=== PATIENT | female | born 1990 | race Two or more races ===

== ENCOUNTER 2023-03-23 11:22 | Emergency (ER) | payer BC ==
[~2023-03-23] VITALS: Ht 149.9 cm; Wt 146.4 kg
[2023-03-23 12:05] VITALS: BP 91/52
[2023-03-23] MEDS ORDERED: METH4PAK PO (14:00)
[2023-03-23] MEDS ORDERED: DICL-163 PO (14:00)
== END 2023-03-23 14:15 | disposition home or self-care (01) ==
LOC: ER 11:22
DX: S46.212A Strain of muscle, fascia and tendon of other parts of biceps, left arm, initial encounter (principal); X58.XXXA Exposure to other specified factors, initial encounter; Y93.89 Activity, other specified; Y92.89 Other specified places as the place of occurrence of the external cause; Y99.8 Other external cause status

== ENCOUNTER 2025-05-18 15:40 | Emergency (ER) | payer BC ==
[~2025-05-18] VITALS: Ht 152.4 cm; Wt 68.8 kg
[~2025-05-18 15:40] MED LIST: DICL50TA5 PO; METH4PAK PO
--- NOTE | 2025-05-18 15:53 | ED.PDOC ---
BATTERY PLATE REMOVER HPI Comments 34-year-old female with PMHx Hypothyroidism, HLD presents with a chief complaint of pelvic pain, possible , and abnormal vaginal bleeding. Patient states that her last menstrual cycle was in February 2025. Patient states that she feels , but has not taken a test to confirm if she is or not. Patient believes that she might be miscarrying because she is experiencing vaginal bleeding that started off as spotting x 2 days ago and has now gotten heavier. Patient does not have a doctors appointment until May 29, 2025. G3, P2. Time Seen by MD: 15:46 Reviewed Notes: Medications, Allergies Allergies: Coded Allergies: NO KNOWN ALLERGIES (Unverified , 03/23/23) Home Meds Active Scripts Diclofenac Sodium (Diclofenac Sodium Dr) 50 Mg Tab, 50 MG PO TID PRN, #30 TAB Prov:YARON LAWSON 03/23/23 Methylprednisolone (Medrol Dosepak) 4 Mg Kal, 4 MG PO UD, #21 TAB UAD Prov:YARON LAWSON 03/23/23 Information Source: Patient Mode of Arrival: Ambulatory Timing: Days Prehospital treatment: None Severity: Moderate Bleeding Quality: Bright Red Onset Of Mass/Bleeding: Spontaneous Sexual Activity: Last Consensual [place]: Unknown Control: None History of: Current Blood Type: Unknown Symptoms of Possible : Missed Period, Feels Past Medical History PAST MEDICAL HISTORY: High Lipids, Thyroid Surgical History: Thyroidectomy RADIO/TV TECHNICIAN History: No Pertinent RADIO/TV TECHNICIAN History Family History Family History: Reviewed,noncontributory to illness Social History Smoker: Non-Smoker Alcohol: Denies ETOH Use Drugs: Denies Drug Use Lives In: Home Constitutional: denies: chills, diaphoresis, fatigue, fever, malaise, sweats, weakness, others EENTM: denies: blurred vision, double vision, ear bleeding, ear discharge, ear drainage, ear pain, ear ringing, eye pain, eye redness, hearing loss, mouth pain, mouth swelling, nasal discharge, nose bleeding, nose congestion, nose pain, photophobia, tearing, throat pain, throat swelling, voice changes, others Respiratory: denies: cough, hemoptysis, orthopnea, SOB at rest, shortness of breath, SOB with excertion, stridor, wheezing, others Cardiovascular: denies: chest pain, dizzy spells, diaphoresis, Dyspnea on exertion, edema, irregular heart beat, left arm pain, lightheadedness, palpitations, PND, syncope, others Gastrointestinal: denies: abdomen distended, abdominal pain, blood streaked bowels, constipated, diarrhea, dysphagia, difficulty swallowing, hematemesis, melena, nausea, poor appetite, poor fluid intake, rectal bleeding, rectal pain, vomiting, others Genitourinary: reports: abnormal vagina bleeding, pain, ; denies: burning, dyspareunia, dysuria, flank pain, frequency, hematuria, incontinence, vagina discharge, urgency, others Neurological: denies: dizziness, fainting, headache, left sided numbness, left sided weakness, numbness, paresthesia, pre-existing deficit, right sided numbness, right sided weakness, seizure, speech problems, tingling, tremors, weakness, others Musculoskeletal: denies: back pain, gout, joint pain, joint swelling, muscle pain, muscle stiffness, neck pain, others Integumetry: denies: bruises, change in color, change in hair/nails, dryness, laceration, lesions, lumps, rash, wounds, others Allergic/Immunocompromised: denies: Difficulty Healing, Frequent Infections, Hives, Itching, others Hematologic/Lymphatic: denies: anemia, blood clots, easy bleeding, easy bruising, swollen glands, others Endocrine: denies: excessive hunger, excessive sweating, excessive thirst, excessive urination, flushing, intolerance to cold, intolerance to heat, unex plained weight gain, unexplained weight loss, others Psychiatric: denies: anxiety, bipolar disorder, depression, hopeless, panic disorder, schizophrenia, sleepless, suicidal, others All Other Systems: Reviewed and Negative Physical Exam General Appearance: No Apparent Distress, Normal HEENT: Normal ENT Inspection, Pharynx Normal, TMs Normal Neck: Full Range of Motion, Non-Tender, Normal, Normal Inspection Respiratory: Chest Non-Tender, Lungs Clear, No Accessory Muscle Use, No Respiratory Distress, Normal Breath Sounds Cardiovascular: No Edema, No JVD, No Murmur, No Gallop, Normal Peripheral Puls es, Regular Rate/Rhythm Breast Exam: Deferred Gastrointestinal: No Organomegaly, Non Tender, No Pulsatile Mass, Normal Bowel Sounds, Soft Genitalia: Deferred Pelvic: Deferred Rectal: Deferred Extremities: No calf tenderness, Normal capillary refill, Normal inspection, Normal range of motion, Non-tender, No pedal edema Musculoskeletal : Apperance: Normal Neurologic: Alert, electrician underground II-XII nml as Tested, No Motor Deficits, Normal Affect, Normal Mood, No Sensory Deficits Cerebellar Function: Normal Reflexes: Normal Skin: Dry, Normal Color, Warm Lymphatic: No Adenopathy Was a procedure done? Was a procedure done?: No X-Ray, Labs, Meds, VS Vital Signs Date Time Temp Pulse Resp B/P (MAP) Pulse Ox O2 Delivery O2 Flow Rate FiO2 05/18/25 18:21 98.2 68 16 113/52 (72) 100 98.2 05/18/25 15:54 99.3 72 18 142/88 (106) 100 99.3 Lab Test 05/18/25 16:19 05/18/25 15:45 Range/Units White Blood Count 8.2 4.4-10.8 10^3/uL Red Blood Count 4.33 4.0-5.20 10^6/uL Hemoglobin 12.5 12.2-16.2 g/dL Hematocrit 36.9 36.0-46.0 % Mean Corpuscular Volume 85.2 80.0-100.0 fL Mean Corpuscular Hemoglobin 28.8 28.0-32.0 pg Mean Corpuscular Hemoglobin Concent 33.8 32.0-36.0 g/dL Red Cell Distribution Width 14.6 H 11.8-14.3 % Platelet Count 305 140-450 10^3/uL Mean Platelet Volume 7.4 6.9-10.8 fL Neutrophils (%) (Auto) 71.1 37.0-80.0 % Lymphocytes (%) (Auto) 23.9 10.0-50.0 % Monocytes (%) (Auto) 4.6 0.0-12.0 % Eosinophils (%) (Auto) 0.0 0.0-7.0 % Basophils (%) (Auto) 0.4 0.0-2.0 % Neutrophils # (Auto) 5.8 1.6-8.6 10 ^3/uL Lymphocytes # (Auto) 2.0 0.4-5.4 10 ^3/uL Monocytes # (Auto) 0.4 0-1.3 10 ^3/uL Eosinophils # (Auto) 0 0-0.8 10 ^3/uL Basophils # (Auto) 0 0-0.2 10 ^3/uL Nucleated Red Blood Cells 0.0 % Beta HCG, Quantitative 2939.9 H 1.5-4.2 mIU/mL Urine Test Positive Negative Time of 1ST Reevaluation: 16:16 Reevaluation 1ST: Unchanged Patient Education/Counseling: Diagnosis, Treatment, Prognosis, Need For Follow Up Family Education/Counseling: No Family Present Comments pt has an 5 week 6 days IUP, but without FHT. she likely has incomplete misab. she is currently not hemorrhaging. her cbc and vss are normal. she is stable to follow up with her doctor Departure 1 Departure Time of Disposition: 20:08 Impression: Primary Impression: Threatened Disposition: HOME / SELF CARE / HOMELESS Condition: Stable Written Prescriptions follow up with your doctor (superintendent tests ) in 48 hours. feel free to return for any concerns, especially if bleeding recurs Discharged With: Self Critical Care Note Critical Care Time?: Yes (45 min-critical care time only) Critical care comment: Due to concerns for patients condition deteriorating, the care required my highest level of attention and readiness to intervene. I assessed the patient, reviewed the medical records, ordered the appropriate tests and treatments, then reassessed for results and responsiveness. I communicated with medical personnel and consultants and formulated a plan of care. Total critical care time excludes any procedures Stability Stability form required: No Heart Score Heart Score: Heart Score Response (Comments) Value History N/A 0 EKG N/A 0 Age N/A 0 Risk Factors N/A 0 Troponin N/A 0 Total 0 I personally scribed for ALLISON CORNEJO MD ([email or web address]) on 05/18/25 at 15:53. Electronically submitted by Kwesi Gong ([email or web address]). ALLISON CORNEJO MD May 18, 2025 15:53
[2025-05-18 16:48] LABS: Basophils # (auto) 0 10 ^3/uL (0-0.2); Basophils % (auto) 0.4 % (0.0-2.0); Eosinophils # (auto) 0 10 ^3/uL (0-0.8); Hematocrit 36.9 % (36.0-46.0); Hemoglobin 12.5 g/dL (12.2-16.2); Lymphocytes % (auto) 23.9 % (10.0-50.0); Mean Corpuscular Hemoglobin 28.8 pg (28.0-32.0); Mean Corpuscular Hgb Conc. 33.8 g/dL (32.0-36.0); Mean Corpuscular Volume 85.2 fL (80.0-100.0); Monocytes # (auto) 0.4 10 ^3/uL (0-1.3); Monocytes % (auto) 4.6 % (0.0-12.0); Neutrophils # (auto) 5.8 10 ^3/uL (1.6-8.6); Neutrophils % (auto) 71.1 % (37.0-80.0); Platelet Count (auto) 305 10^3/uL (140-450); Red Blood Cells 4.33 10^6/uL (4.0-5.20); Red Cell Distribution Width 14.6 % (11.8-14.3); White Blood Cell 8.2 10^3/uL (4.4-10.8)
--- NOTE | 2025-05-18 19:30 | DVH ---
OB EVALUATION, LESS THAN 14 WEEKS CLINICAL HISTORY: VAG BLEED COMPARISON: None TECHNIQUE: Grayscale, color-flow Doppler, and spectral Doppler ultrasound of the pelvis is performed by transabdominal and transvaginal technique. FINDINGS: Uterus measures 10.0 x 6.3 x 5.5 cm. Somewhat irregular gestational sac with pole seen within t he lower uterine segment. Mean sac diameter 1.5 cm. [place]-rump length 0.3 cm. Average ultrasound age 5 weeks 6 days. No definite yolk sac. No heart rate detected. The right ovary measures 2.2 x 1.3 x 1.6 cm. The left ovary measures 2.9 x 1.6 x 2.2 cm. Both ovarie s demonstrate dopplerable blood flow on spectral analysis. Small amount of free fluid noted in the cul-de-sac. IMPRESSION: Approximately 5 week, 6 day sized intrauterine gestational sac with pole seen within the lower uterine segment. No heart rate detected at this time. Early viable is a possibility, however, failure/incomplete miscarriage is more li roseanne given the above findings. Recommend short-term interval follow-up as well as correlation with se rial beta HCG testing.
[2025-05-18 20:10] VITALS: BP 156/72; TEMP 98.2
[2025-05-18 20:20] VITALS: PULSE 85; RESP 20; O2SAT 99
[2025-05-19] MEDS ORDERED: HYDR-4072 PO (21:22)
[2025-05-19] MEDS ORDERED: ZOFR4T PO (21:22)
[2025-05-19] MEDS ORDERED: IBUP-1456 PO (21:22)
[2025-05-19] MEDS ORDERED: FER325T PO (21:24)
== END 2025-05-18 20:18 | disposition home or self-care (01) ==
LOC: ER 15:40
DX: O20.0 Threatened abortion (principal); E78.5 Hyperlipidemia, unspecified; Z3A.01 Less than 8 weeks gestation of pregnancy; Z90.89 Acquired absence of other organs; Z79.899 Other long term (current) drug therapy
CPT/HCPCS: 36415; 76801; 76817; 81025; 84702; 85025; 86900; 86901

== ENCOUNTER → 2025-05-19 | Day surgery (SDC) | payer BC ==
[~2025-05-19] VITALS: Ht 172.7 cm; Wt 75.0 kg
[~2025-05-19] MED LIST changes: +DexAMETHasone SOD PHOS 10MG/1ML VIAL INJ ONE; +FER325T PO; +FLUMAZENIL 0.1 MG/ML INJ 10ML MDV IV PRN; +GLYCOPYRROLATE 0.2 MG/ML 1ML VIAL ONE; +HYDR-4072 PO; +HYDROmorphone HCL 2 MG/ML VL/or syr IV PRN; +IBUP-1456 PO; +KETAMINE 50mg/ML 1ml syringe ONE; +KETOROLAC TROMETH 30 MG/ML 1ML VIAL ONE; +LACTATED RINGER'S 1,000 ML IV SCH; +LIDOCAINE 2% (LOCAL ANESTH.) PF 5ml SDV ONE; +LIDOCAINE HCL 2% TOP JELLY 5ML TOP ONE; +NALOXONE HCL 0.4 MG/ML VIAL IV PRN; +ONDANSETRON HCL 4 MG/2 ML VIAL IV PRN; +ONDANSETRON HCL 4 MG/2 ML VIAL ONE; +PHENYLEPHRINE HCL 10 MG/ML VL IV ONE; +PROPOFOL 10 MG/ML 20 ML IV ONE; +ROCURONIUM 10MG/ML 10ML VIAL IV ONE; +SUGAMMADEX 200mg/2ml Vial (100MG/ML) IV ONE; +TRANEXAMIC ACID 1,000 MG in SODIUM CHL 0.9% 100 ML IV ONE; +TRANEXAMIC ACID 10 ML ONE; +ZOFR4T PO; +ePHEDrine SULFATE 50 MG/ML AMP IV PRN; +fentaNYL CITRATE 100 MCG/2 ML VL IV PRN; +fentaNYL CITRATE 100 MCG/2 ML VL ONE; +hydrALAZINE HCL 20 MG/ML VL IV PRN; +oxyCODONE HCL 5MG TAB PO PRN
--- NOTE | 2025-05-19 19:49 | ED.PDOC ---
MANAGER SAFE HPI Comments 34 y/o F is BIBA for c/c of heavy vaginal bleeding, with associated lower abdominal pain. Patient reports bleeding since yesterday's unprovoked onset at around 1400. Patient states she has soaked 6x 'Granny panties' and 6x pads today. Denies any lightheadedness, shortness of breath, urinary symptoms, weakness, or other additional symptoms. She reports she was told she was yesterday when evaluated at [facility] for similar symptoms. Obstetric and transvaginal ultrasound performed yesterday was reported to have shown IUP with no heart tones. History significant for hypothyroidism on levothyroxine and hyperlipidemia on simvastatin and partial thyroidectomy in 2019. Per EMS systolic pressure was in the 60's. Time Seen by MD: 19:30 Reviewed Notes: Nurses Notes, Blanket Washer Notes, Medications, Allergies Allergies: Coded Allergies: NO KNOWN ALLERGIES (Unverified , 03/23/23) Home Meds Active Scripts Ferrous Sulfate (FERROUS SULFATE) 325 Mg Tb, 1 TAB PO TIDBM PRN for 20 Days, #60 TAB 3 Refills Prov:NABEEL WHITTEN DO 05/19/25 Ondansetron Odt 4MG Tab (ZOFRAN PO) 4 Mg Tb, 4 MG PO Q4HPRN PRN for 6 Days, #30 TAB ODT TAB-DISSOLVE IN MOUTH, THEN SWALLOW Prov:NABEEL WHITTEN DO 05/19/25 Ibuprofen (Ibuprofen) 800 Mg Tab, 800 MG PO TID PRN for 3 Days, #12 TAB Prov:NABEEL WHITTEN DO 05/19/25 Hydrocodone-Acetaminophen (Hydrocodone/Acetaminophen 10-325 mg) 1 Tab Tab, 1 TAB PO Q6HPRN PRN for 3 Days, #12 TAB Prov:NABEEL WHITTEN DO 05/19/25 Diclofenac Sodium (Diclofenac Sodium Dr) 50 Mg Tab, 50 MG PO TID PRN, #30 TAB Prov:YARON LAWSONP 03/23/23 Methylprednisolone (Medrol Dosepak) 4 Mg Kal, 4 MG PO UD, #21 TAB UAD Prov:YARON LAWSON 03/23/23 Information Source: Patient, Emergency Med Personnel Mode of Arrival: EMS Timing: Hours Past Medical History PAST MEDICAL HISTORY: High Lipids, Thyroid Surgical History: Thyroidectomy (partial ) GRINDING WHEEL OPERATOR History: No Pertinent GRINDING WHEEL OPERATOR History 3 Para 2 Family History Family History: Reviewed,noncontributory to illness Social History Smoker: Non-Smoker Alcohol: Denies ETOH Use Drugs: Denies Drug Use Lives In: Home All Other Systems: Reviewed and Negative (Comprehensive review of systems are negative unless otherwise stated in HPI) Physical Exam General Appearance: Moderate Distress, Obese HEENT: Other (Pupils and face symmetric. Moist mucous membranes.) Neck: Full Range of Motion, Normal Inspection Respiratory: Lungs Clear, No Accessory Muscle Use, No Respiratory Distress, Normal Breath Sounds Cardiovascular: No Edema, No JVD, Regular Rate/Rhythm Breast Exam: Deferred Gastrointestinal: Suprapubic, Tenderness Genitalia: Normal Pelvic: Vaginal Bleeding (Moderate) Rectal: Deferred Extremities: Normal inspection, Normal range of motion, Non-tender, No pedal edema Neurologic: Alert (Oriented x4), Normal Affect, Normal Mood, Other (No gross focal deficit) Cerebellar Function: NOT DONE Reflexes: NOT DONE Skin: Dry, Pallor, Warm Lymphatic: NOT DONE Was a procedure done? Was a procedure done?: No Differential Diagnosis (GRINDING WHEEL OPERATOR) Vaginal Bleeding: - Complete, - Incomplete, - Inevitable, - Missed, - Threatened, Abruptio Placentae, Blood Loss Anemia, Dysmenorrhea, Hormonal, Menstrual Bleeding, Myomatous Uterus, Placenta Previa X-Ray, Labs, Meds, VS Vital Signs Date Time Temp Pulse Resp B/P (MAP) Pulse Ox O2 Delivery O2 Flow Rate FiO2 05/19/25 22:35 87 125/89 (101) 97 05/19/25 22:30 90 116/77 (90) 98 05/19/25 22:25 92 127/58 (81) 99 05/19/25 22:20 Mask 8.0 98 05/19/25 22:20 98.3 102 13 104/50 (68) 99 98.3 05/19/25 22:20 110 13 99 6.0 05/19/25 21:30 97.7 79 14 99/63 (75) 98 97.7 05/19/25 21:15 97.8 76 15 107/53 (71) 99 97.8 05/19/25 20:50 97.8 80 15 90/46 (61) 99 97.8 05/19/25 20:25 97.7 81 12 97/35 (55) 96 97.7 05/19/25 20:09 97.7 80 17 104/50 (68) 97 97.7 05/19/25 19:46 98.2 16 16 62/35 (44) 96 98.2 05/19/25 19:40 Room Air* 0 21 Lab Test 05/19/25 19:45 Range/Units White Blood Count 10.4 # 4.4-10.8 10^3/uL Red Blood Count 3.35 L 4.0-5.20 10^6/uL Hemoglobin 9.6 #L 12.2-16.2 g/dL Hematocrit 28.4 #L 36.0-46.0 % Mean Corpuscular Volume 85.0 80.0-100.0 fL Mean Corpuscular Hemoglobin 28.6 28.0-32.0 pg Mean Corpuscular Hemoglobin Concent 33.7 32.0-36.0 g/dL Red Cell Distribution Width 14.5 H 11.8-14.3 % Platelet Count 298 140-450 10^3/uL Mean Platelet Volume 7.1 6.9-10.8 fL Neutrophils (%) (Auto) 60.7 37.0-80.0 % Lymphocytes (%) (Auto) 34.0 10.0-50.0 % Monocytes (%) (Auto) 4.8 0.0-12.0 % Eosinophils (%) (Auto) 0.1 0.0-7.0 % Basophils (%) (Auto) 0.4 0.0-2.0 % Neutrophils # (Auto) 6.3 1.6-8.6 10 ^3/uL Lymphocytes # (Auto) 3.5 0.4-5.4 10 ^3/uL Monocytes # (Auto) 0.5 0-1.3 10 ^3/uL Eosinophils # (Auto) 0 0-0.8 10 ^3/uL Basophils # (Auto) 0 0-0.2 10 ^3/uL Nucleated Red Blood Cells 0.0 % Prothrombin Time 10.9 9.3-11.8 sec Prothrombin Time INR 1.03 0.9-1.15 Activated Partial Thromboplast Time 23.9 L 24.5-34.5 SEC Sodium Level 140 136-145 mmol/L Potassium Level 3.4 L 3.5-5.1 mmol/L Chloride Level 104 98-107 mmol/L Carbon Dioxide Level 24 20-31 mmol/L Anion Gap 12 5-15 Blood Urea Nitrogen 17 9-23 mg/dL Creatinine 0.83 0.550-1.02 mg/dL Glomerular Filtration Rate Calc 94 >90 mL/min BUN/Creatinine Ratio 20.5 H 10.0-20.0 Serum Glucose 127 H 74-106 mg/dL Calcium Level 9.2 8.7-10.4 mg/dL Beta HCG, Quantitative 1245.6 H 1.5-4.2 mIU/mL Current Medications Medications (Trade) Dose Ordered Sig/Gianni Route Start Time Stop Time Status Last Admin Sodium Chloride 2,000 ml @ 1,000 mls/hr Q2H ONCE IV 05/19/25 19:45 05/19/25 21:44 DC 05/19/25 20:05 Oxytocin 1,000 ml @ 150 mls/hr Q6H40M ONCE IV 05/19/25 20:45 05/20/25 03:24 DC 05/19/25 21:16 X-Ray, Labs, Meds, VS Comment 34-year-old female G3, P2 with current of unknown duration brought in by EMS from home complaining of pelvic pain and vaginal bleeding. Patient was found to be hypotensive in the 60s systolic. Vitals remarkable for BP 62/35 Exam remarkable for generalized suprapubic tenderness to palpation moderate dark red vaginal bleeding and pallor Rhythm strip independently interpreted by me: Sinus rhythm, rate 87, no ectopy. Ob ultrasound: Preliminarily reported by technologist showing retained products of conception in the lower uterine segment CBC remarkable for hemoglobin 9.6, hematocrit 28.4, basic metabolic panel remarkable for potassium 3.4, serum quantitative hCG 1254.6, coag panel unremarkable Patient treated with the following in the ED: Transfused 1 unit 0 neg, 2 L 0.9 normal saline IV bolus, Txa 1 g IV, 20 units of Pitocin in LR at 150 cc an hour On re-evaluation, blood pressure is 97/63 and other vitals were stable. Patient no longer appears pale. Case discussed with Dr. Whitten who will take the patient for D&C. Time of 1ST Reevaluation: 20:00 Reevaluation 1ST: Unchanged Time of 2ND Reevaluation: 20:56 Reevaluation 2ND: Improved Patient Education/Counseling: Diagnosis, Treatment Family Education/Counseling: No Family Present Departure 1 Departure Time of Disposition: 20:56 Impression: Primary Impression: Incomplete with complication Additional Impression: Symptomatic anemia Disposition: ADMITTED INPATIENT Admit to: Med Surg Condition: Guarded e-Prescriptions Ferrous Sulfate (FERROUS SULFATE) 325 Mg Tb 1 TAB PO TIDBM PRN for 20 Days, #60 TAB 3 Refills Prov: NABEEL WHITTEN DO 05/19/25 Ondansetron Odt 4MG Tab (ZOFRAN PO) 4 Mg Tb 4 MG PO Q4HPRN PRN for 6 Days, #30 TAB ODT TAB-DISSOLVE IN MOUTH, THEN SWALLOW Prov: NABEEL WHITTEN DO 05/19/25 Ibuprofen (Ibuprofen) 800 Mg Tab 800 MG PO TID PRN for 3 Days, #12 TAB Prov: NABEEL WHITTEN DO 05/19/25 Hydrocodone-Acetaminophen (Hydrocodone/Acetaminophen 10-325 mg) 1 Tab Tab 1 TAB PO Q6HPRN PRN for 3 Days, #12 TAB Prov: NABEEL WHITTEN DO 05/19/25 Critical Care Note Critical Care Time?: No Stability Stability form required: No Heart Score Heart Score: Heart Score Response (Comments) Value History N/A 0 EKG N/A 0 Age N/A 0 Risk Factors N/A 0 Troponin N/A 0 Total 0 I personally scribed for KAMERON TURK MD ([email or web address]) on 05/19/25 at 19:49. Electronically submitted by Kwame Sparks ([email or web address]). KAMERON TURK MD May 19, 2025 19:49
[2025-05-19 19:58] LABS: Basophils # (auto) 0 10 ^3/uL (0-0.2); Basophils % (auto) 0.4 % (0.0-2.0); Eosinophils # (auto) 0 10 ^3/uL (0-0.8); Eosinophils % (auto) 0.1 % (0.0-7.0); Hematocrit 28.4 % (36.0-46.0); Hemoglobin 9.6 g/dL (12.2-16.2); Lymphocytes # (auto) 3.5 10 ^3/uL (0.4-5.4); Mean Corpuscular Hemoglobin 28.6 pg (28.0-32.0); Mean Corpuscular Hgb Conc. 33.7 g/dL (32.0-36.0); Monocytes # (auto) 0.5 10 ^3/uL (0-1.3); Monocytes % (auto) 4.8 % (0.0-12.0); Neutrophils # (auto) 6.3 10 ^3/uL (1.6-8.6); Neutrophils % (auto) 60.7 % (37.0-80.0); Platelet Count (auto) 298 10^3/uL (140-450); Red Blood Cells 3.35 10^6/uL (4.0-5.20); Red Cell Distribution Width 14.5 % (11.8-14.3); White Blood Cell 10.4 10^3/uL (4.4-10.8)
[2025-05-19] MEDS: SODIUM CHLORIDE 0.9% 2,000 ML IV ONE (20:05)
[2025-05-19 20:08] LABS: Chloride 104 mmol/L (98-107); Sodium 140 mmol/L (136-145)
[2025-05-19 20:09] LABS: Anion Gap 12 (5-15); Calcium 9.2 mg/dL (8.7-10.4); Carbon Dioxide 24 mmol/L (20-31)
[2025-05-19 20:12] LABS: INR 1.03 (0.9-1.15); Partial Thromboplastin Time 23.9 SEC (24.5-34.5); Potassium 3.4 mmol/L (3.5-5.1); Prothrombin Time 10.9 sec (9.3-11.8)
[2025-05-19 20:14] LABS: BUN/Creatinine Ratio 20.5 (10.0-20.0); Blood Urea Nitrogen 17 mg/dL (9-23); Glucose 127 mg/dL (74-106)
--- NOTE | 2025-05-19 20:51 | DVH ---
LIMITED SURVEY CLINICAL HISTORY: vag bleed COMPARISON: US OB ULTRASOUND COMP LESS 14WKS on DOS: 05/18/25 TECHNIQUE: Real-time grayscale ultrasound of the uterus with transabdominal and transvaginal techniqu e. FINDINGS: The uterus measures 10.5 x 5.9 x 5.0 cm. Irregular sac-like structure seen within the lower uterine segment now measuring approximately 1.8 x 1.1 x 0.7 cm in diameter. This contains some heterogeneous material. No discernible pole. The ovaries are not visualized. No significant free fluid in the cul-de-sac. IMPRESSION: When compared to the prior study, the above findings suggest incomplete miscarriage. Recommend follow -up to resolution.
[2025-05-19] MEDS: LACT. RINGERS/OXYTOCIN 20UNITS 1,000 ML IV ONE (21:16)
--- NOTE | 2025-05-19 22:14 | POSTOP ---
Post-Operative Note Post-Operative Note Preop Diagnosis incompelet ab,anemia Postop Diagnosis: incompelet ab,anemia Operation performed d and c,suction currettage Specimen poc Anesthesia: Mac Anesthesiologist: keny hay Blood Loss(fluid mgmt) 100ml Surgeon Nabeel Whitten Implant na Complications & Mgmt none Additional Remarks h and p [id number] Date 05/19/25 Time 22:12 Visit Coding OBGYN Date of Service: May 19, 2025 Billing Provider: NABEEL WHITTEN DO API ARCHITECT Common Visit Codes: 34324-PCKXFLV INP/OBS CARE (HIGH) API ARCHITECT Procedure Codes: 72809-ER OF INCOMP AB,ANY TRIMESTER, 08603-WL OF MISSED AB,SURG 2ND TRI NABEEL WHITTEN DO May 19, 2025 22:14
--- NOTE | 2025-05-19 22:15 | DVHOP2 ---
Operative Report DATE OF OPERATION: 05/19/25 PREOPERATIVE DIAGNOSES: Incomplete POSTOPERATIVE DIAGNOSES: Incomplete SURGEON: Nabeel Whitten D.O. ANESTHESIOLOGIST: keny hay TYPE OF ANESTHESIA : MAC CONSENT: The patient was informed of the risks and benefits of the procedure. The patient was informed of the risks and benefits of the procedure. These include but are not limited to , complications of anesthesia, postoperative infection, incomplete relief of symptoms, recurrence of symptoms, damage to blood vessels, nerves and tendons, deep venous thrombosis, pulmonary embolism and possible need for repeat surgery in the future. FINDINGS: Cervix is 1 cm and uterus 9 weeks' size. Adnexa nonpalpable. TISSUE TO PATHOLOGY: POC. PROCEDURES: Dilatation and curettage and suction curettage. PROCEDURE IN DETAIL: The patient was taken to the operating room where she was placed under MAC anesthesia. The patient was then prepped and draped in the usual sterile manner in dorsal lithotomy position. Bladder was emptied using straight catheter. Examination under anesthesia revealed the above findings. A weighted speculum was placed in the vagina. Anterior lip of the cervix was grasped using a single-tooth tenaculum. Cervix was dilated. Uterus was sounded to 9 cm. Products of conception were evacuated using suction curette, size #7, sharp curetting of endometrial cavity was done. The patient tolerated the procedure well. All the instruments were removed from vagina and cervix. The patient was taken to the recovery room in a stable condition. ESTIMATED BLOOD LOSS: 100 mL Visit Coding OBGYN Date of Service: May 19, 2025 Billing Provider: NABEEL WHITTEN DO CAR ICER Common Visit Codes: 84178-TSCAPVG INP/OBS CARE (HIGH) CAR ICER Procedure Codes: 55268-[place] OF INCOMP AB,ANY TRIMESTER NABEEL WHITTEN DO May 19, 2025 22:15
--- NOTE | 2025-05-19 22:16 | DVHDS2 ---
Physician Discharge Progress N Final Diagnosis: incompelet ab,anemia Operations or Procedures: Operations or Procedures d and c,suction currettage Condition on Discharge: Good Disposition: Home Discharge Instructions: Diet: Regular Activity: Light activity Follow Up/Referral: 1w Medications: brooke salazar Follow Up Care: Specialist: tue 10am Discharge Statement: "Patient was advised to return to the ER or call 911 if any headaches, dizziness, shortness of breath, chest pain, abdominal pain, bleeding, fevers, or worsening of medical condition. Patient was counseled about treatment plan, medications, possible side effects, patientverbalized understanding. All questions were answered to the best of my ability. This discharge took greater then 30 minutes in planning, reviewing documentation, counseling the patient, and discussing with other team members." Visit Coding OBGYN Date of Service: May 19, 2025 Billing Provider: NABEEL SAAVEDRA DO FOIL STAMP OPERATOR Common Visit Codes: [id number] INP/OBS CARE (HIGH), 66482-LBI/OBS DISCH DAY >30MIN FOIL STAMP OPERATOR Procedure Codes: 71823-ID OF INCOMP AB,ANY TRIMESTER, 71019-HD OF MISSED AB,SURG 1ST TRI NABEEL SAAVEDRA DO May 19, 2025 22:16
[2025-05-19 22:20] VITALS: PULSE 110; RESP 13; TEMP 98.3; O2SAT 99
[2025-05-19 22:35] VITALS: BP 125/89; PULSE 87; O2SAT 97
--- NOTE | 2025-05-19 22:42 | DVHHP ---
ADMIT DATE: 05/19/2025 CHIEF COMPLAINT: Severe vaginal bleeding, hypotension. HISTORY OF PRESENT ILLNESS: The patient is a 34-year-old 3, para 2, admitted for incomplete AB. The patient started bleeding with a lot of blood clots yesterday. She presented today with severe vaginal bleeding and hypotension. Ultrasound reveals 2 x 2 x 1 cm tissue in the lower uterine segment. Beta hCG is 1243. The patient has a history of hypothyroid and hyperlipidemia. Uterus is approximately 10 weeks' size. PAST MEDICAL HISTORY: Hypothyroid, hyperlipidemia. PAST SURGICAL HISTORY: Thyroidectomy. SOCIAL HISTORY: None. FAMILY HISTORY: None. OBSTETRIC AND GYNECOLOGIC HISTORY: Three pregnancies, two vaginal deliveries. ALLERGIES: No known drug allergies. REVIEW OF SYSTEMS: Consistent with HPI. PHYSICAL EXAMINATION: VITAL SIGNS: The patient has been given blood, currently blood pressure 100/60, pulse of 110. HEENT: Pale conjunctivae. CARDIOVASCULAR: Tachy rate. LUNGS: Clear to auscultation. BREASTS: Symmetrical. No masses. ABDOMEN: Soft, nontender. PELVIC: External genitalia within normal limits. Vagina, some blood clots noted. Cervix 1 cm. Uterus 10 weeks' size. Adnexa nonpalpable. EXTREMITIES: No clubbing, cyanosis, or edema. IMPRESSION: * Incomplete AB. * Hypotension secondary to severe bleeding and anemia. PLAN: D and C suction curettage. Informed consent obtained. Risks and complications of surgery including infection, bleeding, hematoma formation, injury to bowel or bladder, surrounding organ, possibility of DVT, pulmonary embolus, risks of anesthesia were discussed with the patient. Possibility of blood transfusion discussed with the patient. The patient fully understands. She wishes to proceed with planned procedure. DO MOHIT Sanchez TID: [id number] RECEIPT: [id number]
== END | disposition home or self-care (01) ==
LOC: EDUNIT# 19:32 → EDBD 19:36 → ER 19:36 → SUR 19:37
PROVIDERS: ATTEND Obstetrics & Gynecology
DX: O03.4 Incomplete spontaneous abortion without complication (principal); D64.9 Anemia, unspecified; E03.9 Hypothyroidism, unspecified; Z90.89 Acquired absence of other organs; Z79.890 Hormone replacement therapy
CPT/HCPCS: 36415; 36430; 59812; 76801; 80048; 84702; 85025; 85610; 85730; 86850; 86900; 86901; 86920; 88305; 96361; 96365; 99285; J1100; J1885; J2003; J2371; J2405; J2590; J2704; P9016